=== PATIENT | male | born 1970 | race Caucasian/White ===

== ENCOUNTER → 2022-03-20 14:54 | Outpatient (CLI) | payer BC, SELFPAY ==
--- NOTE | ~2022-03-20 | MR_ITS ---
EXAMINATION: MR ankle LT wo con DATE: 03/20/2022 15:43 INDICATION: Left ankle stress fracture presenting with a couple months of intermittent lateral and po sterior left ankle pain TECHNIQUE: Magnetic resonance imaging (MRI) of the left ankle was performed without intravenous contr ast. Sequences included sagittal, coronal, and axial proton-density weighted fast spin echo without a nd with fat saturation. COMPARISON: Left ankle radiographs dated 03/08/2022 FINDINGS: Medial ankle ligaments: Deep and superficial deltoid ligaments as well as the spring ligament are normal. Lateral ankle ligaments: The anterior and posterior inferior tibiofibular ligaments are normal. The anterior talofibular, calc aneofibular and posterior talofibular ligaments are normal. Tendons: Achilles tendon is normal. The peroneus longus and brevis tendons are normal. The tibialis anterior a nd extensor hallucis longus and extensor digitorum longus tendons are normal. The tibialis posterior, flexor digitorum longus and flexor hallucis longus tendons are normal. Plantar fascia: Plantar aponeurosis is normal. Bones/other: Bone alignment is normal. No fracture. Mild osteoarthritis at the ankle with high-grade chondromalaci a along the medial rim of the medial talar dome with underlying mild subarticular edema-like and cyst like changes. Additional mild osteoarthritis at the naviculocuneiform joint with high-grade chondroma lacia with underlying subarticular edema-like and cystlike changes along the distal articulation of t he navicular with the middle cuneiform. Mild osteoarthritis at the second tarsal metatarsal joint wit h mild subarticular edema-like change at the distal articular surface of the mid cuneiform. The Lisfr anc ligament complex is normal. Fluid: Diffuse soft tissue edema about the ankle both medially and laterally and extending over the dorsum o f the foot. Physiologic amount fluid in the joint spaces. IMPRESSION: 1. 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 Reviewed, dictated and finalized at location B. IMPRESSION: 1. 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
== END ==
PROVIDERS: Visit Provider Orthopaedic Surgery
DX: M19.072 Primary osteoarthritis, left ankle and foot (principal)
CPT/HCPCS: 73721